=== PATIENT | male | born 2000 | race Native Hawaiian/Other Pacific Islander ===

== ENCOUNTER 2019-01-24 10:06 | Emergency (ER) | payer BC, OTHER ==
[~2019-01-24] VITALS: Ht 182 cm; Wt 127.0 kg
--- NOTE | 2019-01-24 10:30 | NUR ---
Patient belongings and clothing placed in belonging cabinet. Patient changed in to hospital gown at this time.
--- NOTE | 2019-01-24 10:42 | ED Psychosocial ---
General Chief Complaint: Suicidal Ideation Risk Stated Complaint: PSYCH EVAL History of Present Illness Date Seen by Provider: Jan 24, 2019 Time Seen by Provider: 10:35 Initial Comments 18-year-old male brought in by a coworker says he has a history of "bipolar depression" says he is very stressed out by: 1) he has a crush/is attracted to another male and these feelings are not returned 2) he has financial worries 3) other stressors not specified so that he is now having suicidal thoughts, says he has knives at home and would cut his own throat He apparently has made such suicidal gestures twice in the past and been hospitalized twice, once at [place], once in [place] he was on medication until about a year ago He admits to drinking alcohol but says the last was 3 weeks ago, admits to marijuana but denies any further substance abuse he states he has not taken anything or done anything to harm himself recently Denies any known active medical problems, other than he does have apparent flea bites on his ankles and arms Allergies and Home Medications Allergies Coded Allergies: Penicillins (Verified Allergy, Unknown, throat swelling, difficulty breathing, 01/24/19) Patient Home Medication List Home Medication List Reviewed: Yes Review of Systems Constitutional: no symptoms reported; No chills, No fever EENTM: no symptoms reported Respiratory: no symptoms reported Cardiovascular: no symptoms reported Gastrointestinal: no symptoms reported Genitourinary: no symptoms reported Musculoskeletal: no symptoms reported Psychiatric/Neurological: Depressed (having suicidal thoughts) Past Nsrdibf-Hvmszt-Cjlagl Hx Patient Social History Recent Foreign Travel: No Physical Exam Vital Signs - First Documented 01/24/19 10:43 Temp 36.4 Pulse 108 Resp 18 B/P (MAP) 128/82 Pulse Ox 99 Capillary Refill : Height, Weight, BMI Height: '" Weight: lbs. oz. 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, no motor/sensory deficits, alert, normal mood/affect, oriented x 3 Appearance/Memory: appropriate appearance Behavior/Eye Contact: cooperative, good eye contact Thoughts/Hallucinations: normal thought pattern Skin: other (flea bites especially on ankles) Progress/Results/Core Measures Results/Orders Lab Results Laboratory Tests Test 01/24/19 10:13 01/24/19 10:41 Range/Units Urine Color YELLOW Urine Clarity CLEAR Urine pH 6.0 5-9 Urine Specific [place] 1.025 H 1.016-1.022 Urine Protein NEGATIVE NEGATIVE Urine Glucose (UA) NEGATIVE NEGATIVE Urine Ketones NEGATIVE NEGATIVE Urine Nitrite NEGATIVE NEGATIVE Urine Bilirubin NEGATIVE NEGATIVE Urine Urobilinogen 0.2 NORMAL MG/DL Urine Leukocyte Esterase NEGATIVE NEGATIVE Urine RBC (Auto) NEGATIVE NEGATIVE Urine RBC NONE /HPF Urine WBC NONE /HPF Urine Squamous Epithelial Cells RARE /HPF Urine Crystals NONE /LPF Urine Bacteria NEGATIVE /HPF Urine Casts NONE /LPF Urine Mucus NONE /LPF Urine Culture Indicated NO Urine Opiates Screen NEGATIVE NEGATIVE Urine Oxycodone Screen NEGATIVE NEGATIVE Urine Methadone Screen NEGATIVE NEGATIVE Urine Propoxyphene Screen NEGATIVE NEGATIVE Urine Barbiturates Screen NEGATIVE NEGATIVE Ur Tricyclic Antidepressants Screen NEGATIVE NEGATIVE Urine Phencyclidine Screen NEGATIVE NEGATIVE Urine Amphetamines Screen NEGATIVE NEGATIVE Urine Methamphetamines Screen NEGATIVE NEGATIVE Urine Benzodiazepines Screen NEGATIVE NEGATIVE Urine Cocaine Screen NEGATIVE NEGATIVE Urine Cannabinoids Screen POSITIVE H NEGATIVE White Blood Count 7.0 4.3-11.0 10^3/uL Red Blood Count 5.48 4.35-5.85 10^6/uL Hemoglobin 14.1 13.3-17.7 G/DL Hematocrit 44 40-54 % Mean Corpuscular Volume 81 80-99 FL Mean Corpuscular Hemoglobin 26 25-34 PG Mean Corpuscular Hemoglobin Concent 32 32-36 G/DL Red Cell Distribution Width 13.0 10.0-14.5 % Platelet Count 367 130-400 10^3/uL Mean Platelet Volume 8.8 7.4-10.4 FL Neutrophils (%) (Auto) 46 42-75 % Lymphocytes (%) (Auto) 41 12-44 % Monocytes (%) (Auto) 9 0-12 % Eosinophils (%) (Auto) 4 0-10 % Basophils (%) (Auto) 0 0-10 % Neutrophils # (Auto) 3.2 1.8-7.8 X 10^3 Lymphocytes # (Auto) 2.9 1.0-4.0 X 10^3 Monocytes # (Auto) 0.6 0.0-1.0 X 10^3 Eosinophils # (Auto) 0.3 0.0-0.3 10^3/uL Basophils # (Auto) 0.0 0.0-0.1 10^3/uL Sodium Level 138 135-145 MMOL/L Potassium Level 4.0 3.6-5.0 MMOL/L Chloride Level 100 98-107 MMOL/L Carbon Dioxide Level 24 21-32 MMOL/L Anion Gap 14 5-14 MMOL/L Blood Urea Nitrogen 11 7-18 MG/DL Creatinine 0.94 0.60-1.30 MG/DL Estimat Glomerular Filtration Rate > 60 BUN/Creatinine Ratio 12 Glucose Level 133 H 70-105 MG/DL Calcium Level 9.4 8.5-10.1 MG/DL Corrected Calcium 9.0 8.5-10.1 MG/DL Total Bilirubin 0.2 0.1-1.0 MG/DL Aspartate Amino Transf (AST/SGOT) 36 H 5-34 U/L Alanine Aminotransferase (ALT/SGPT) 32 0-55 U/L Alkaline Phosphatase 94 40-136 U/L Total Protein 8.1 6.4-8.2 GM/DL Albumin 4.5 3.2-4.5 GM/DL Salicylates Level 0.5 L 5.0-20.0 MG/DL Acetaminophen Level < 10 L 10-30 UG/ML Serum Alcohol < 10 <10 MG/DL My Orders Orders - EDWIGE TIDWELL MD Urinalysis (01/24/19 10:15) Drug Screen Stat (Urine) (01/24/19 10:15) Alcohol (01/24/19 10:15) Cbc With Automated Diff (01/24/19 10:15) Comprehensive Metabolic Panel (01/24/19 10:15) Acetaminophen (01/24/19 10:15) Salicylate (01/24/19 10:54) Vital Signs/I&O 01/24/19 10:43 Temp 36.4 Pulse 108 Resp 18 B/P (MAP) 128/82 Pulse Ox 99 Progress Progress Note : Progress Note Patient is calm, in fact was sleeping through much of his ER stay Hb 14.1 and white count 7000 CMP essentially negative UA negative urine drug screen positive only for marijuana alcohol and Tylenol levels are 0 the patient is medically cleared ready for his mental health screening evaluation mental health screening eval is done pt not meeting any criteria to indicated hospitalization necessary arrangements being made for outpt follow up Departure Impression Primary Impression: Depression Qualified Codes: F32.9 - Major depressive disorder, single episode, unspecified Disposition: 01 HOME, SELF-CARE Condition: Stable Departure-Patient Inst. Decision time for Depature: 13:55 Referrals: NO,LOCAL PHYSICIAN (PCP/Family) Primary Care Physician Patient Instructions: Depression, Adult (DC) Add. Discharge Instructions: Please follow-up according to the arrangements by the mental health screener Don't hesitate to return if worsening EDWIGE TIDWELL MD Jan 24, 2019 10:42
[2019-01-24 10:44] LABS: BACTERIA,URINE NEGATIVE /HPF; BILIRUBIN,URINE NEGATIVE (NEGATIVE); CLARITY,URINE CLEAR; COLOR,URINE YELLOW; GLUCOSE, URINE (UA) NEGATIVE (NEGATIVE); KETONES,URINE NEGATIVE (NEGATIVE); LEUKOCYTE ESTERASE ,URINE NEGATIVE (NEGATIVE); NITRITE,URINE NEGATIVE (NEGATIVE); PROTEIN,URINE NEGATIVE (NEGATIVE); SQUAMOUS EPITHELIAL CELL,UR RARE /HPF
[2019-01-24 10:49] LABS: AMPHETAMINE SCREEN, URINE NEGATIVE (NEGATIVE); BARBITURATE SCREEN URINE NEGATIVE (NEGATIVE); BENZODIAZEPINES SCREEN URINE NEGATIVE (NEGATIVE); CANNABINOID SCREEN, URINE POSITIVE (NEGATIVE); COCAINE SCREEN URINE NEGATIVE (NEGATIVE); METHADONE STAT NEGATIVE (NEGATIVE); METHAMPHETAMINE SCREEN URINE S NEGATIVE (NEGATIVE); OPIATE SCREEN URINE NEGATIVE (NEGATIVE); OXYCODONE STAT NEGATIVE (NEGATIVE); PROPOXYPHENE STAT NEGATIVE (NEGATIVE); TRICYCLIC ANTIDEPRESSANTS SCRE NEGATIVE (NEGATIVE)
[2019-01-24 10:56] LABS: HEMATOCRIT 44 % (40-54); HEMOGLOBIN 14.1 G/DL (13.3-17.7); MEAN CORPUSCULAR HEMOGLOBIN 26 PG (25-34); MEAN CORPUSCULAR HGB CONC 32 G/DL (32-36); MEAN CORPUSCULAR VOLUME 81 FL (80-99); PLATELET COUNT 367 10^3/uL (130-400)
[2019-01-24 10:57] LABS: BASOPHILS % (AUTO) 0 % (0-10); EOSINOPHILS # (AUTO) 0.3 10^3/uL (0.0-0.3); EOSINOPHILS % (AUTO) 4 % (0-10); LYMPHOCYTES # (AUTO) 2.9 X 10^3 (1.0-4.0); LYMPHOCYTES % (AUTO) 41 % (12-44); MEAN PLATELET VOLUME 8.8 FL (7.4-10.4); MONOCYTES # (AUTO) 0.6 X 10^3 (0.0-1.0); MONOCYTES % (AUTO) 9 % (0-12); NEUTROPHILS # (AUTO) 3.2 X 10^3 (1.8-7.8); NEUTROPHILS % (AUTO) 46 % (42-75)
[2019-01-24 11:25] LABS: ALANINE AMINOTRANSFERASE 32 U/L (0-55); ALKALINE PHOSPHATASE 94 U/L (40-136); BILIRUBIN,TOTAL 0.2 MG/DL (0.1-1.0); BUN/CREATININE RATIO 12; CALCIUM 9.4 MG/DL (8.5-10.1); CARBON DIOXIDE 24 MMOL/L (21-32); CHLORIDE 100 MMOL/L (98-107); CREATININE SERUM 0.94 MG/DL (0.60-1.30); GFR ESTIMATED > 60; GLUCOSE 133 MG/DL (70-105); SODIUM 138 MMOL/L (135-145)
[2019-01-24 11:26] LABS: ACETAMINOPHEN < 10 UG/ML (10-30); ALBUMIN 4.5 GM/DL (3.2-4.5); TOTAL PROTEIN 8.1 GM/DL (6.4-8.2)
--- NOTE | 2019-01-24 11:39 | NUR ---
Called [facility] at this time to request screening. Spoke with Bijal in the office who took patient information and states a screener will be calling me back soon.
--- NOTE | 2019-01-24 11:45 | NUR ---
Received call from Paulo at [facility]. States it will be a while until someone will be here to screen him but will call and let us know.
--- NOTE | 2019-01-24 14:00 | NUR ---
felipe Bateser from [facility], states he is making a safety plan and the patient will be ok for discharge.
== END 2019-01-24 14:38 | disposition home or self-care (01) ==
LOC: ER FS 10:08
DX: F32.9 Major depressive disorder, single episode, unspecified (principal); Z88.0 Allergy status to penicillin
CPT/HCPCS: 36415; 80053; 80306; 80320; 80329; 81000; 85025

== ENCOUNTER → 2020-01-09 | Emergency (ER) | payer BC ==
[~2020-01-09] VITALS: Ht 187.9 cm; Wt 113.0 kg
[~2020-01-09] MED LIST: ACETAMINOPHEN 325 MG TABLET PO STA; LACTATED RINGERS 1,000 ML IV ONE; LACTATED RINGERS 1,000 ML IV STA; NS IV 1000 ML 1,000 ML IV SCH
--- NOTE | 2020-01-09 02:37 | ED GI ---
General Stated Complaint: FEVER,DIARRHEA Source of Information: Patient Exam Limitations: No Limitations History of Present Illness Date Seen by Provider: Jan 09, 2020 Time Seen by Provider: 02:33 Initial Comments 19-year-old male presents with fever, diarrhea. Patient reports had fever for a couple days. That he's had diarrhea on and off this woke him up every 20 minutes since midnight. Denies any cough. Denies abdominal pain patient heart rate is slightly elevated. He hasn't taken any Tylenol ibuprofen for the fever. Patient has some generalized body aches and malaise. Allergies and Home Medications Allergies Coded Allergies: Penicillins (Verified Allergy, Unknown, throat swelling, difficulty breathing, 01/24/19) Patient Home Medication List Home Medication List Reviewed: Yes Review of Systems Review of Systems Constitutional: fever, malaise Respiratory: Denies Cough, Denies Shortness of Air Cardiovascular: Denies Chest Pain, Denies Irregular Heart Rate Gastrointestinal: Denies Abdominal Pain; Diarrhea; Denies Vomiting Genitourinary: No Symptoms Reported Musculoskeletal: see HPI Skin: no symptoms reported Psychiatric/Neurological: No Symptoms Reported Endocrine: No Symptoms Reported Past Lvjoyhf-Oiqjif-Jaqemp Hx Past Med/Social Hx: Reviewed Nursing Past Med/Soc Hx Patient Social History Drug of Choice: marijuana- daily use Type Used: Electronic/Vapor 2nd Hand Smoke Exposure: Yes Recent Foreign Travel: No Contact w/Someone Who Travel: No Recent Hopitalizations: No Seasonal Allergies Seasonal Allergies: No Past Medical History Surgeries: No Respiratory: No Cardiac: No Neurological: No Genitourinary: No Gastrointestinal: No Musculoskeletal: No Endocrine: No HEENT: No Cancer: No Psychosocial: Yes ADD/ADHD, Sleep Difficulties, Depression Integumentary: No Blood Disorders: No Adverse Reaction/Blood Tranf: No Physical Exam Vital Signs Vital Signs - First Documented 01/09/20 02:30 Temp 39.1 Pulse 153 Resp 32 B/P (MAP) 108/66 Pulse Ox 96 O2 Delivery Room Air Capillary Refill : Height/Weight/BMI Height: '" Weight: lbs. oz. 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, no motor/sensory deficits, normal mood/affect, oriented x 3 Skin: normal color, warm/dry Focused Exam Lactate Level 01/09/20 02:30: Lactic Acid Level 1.34 Lactic Acid Level Laboratory Tests Test 01/09/20 02:30 Lactic Acid Level 1.34 MMOL/L (0.50-2.00) Progress/Results/Core Measures Results/Orders Lab Results Laboratory Tests Test 01/09/20 02:30 01/09/20 02:38 Range/Units White Blood Count 14.6 H 4.3-11.0 10^3/uL Red Blood Count 5.99 H 4.35-5.85 10^6/uL Hemoglobin 15.5 13.3-17.7 G/DL Hematocrit 47 40-54 % Mean Corpuscular Volume 78 L 80-99 FL Mean Corpuscular Hemoglobin 26 25-34 PG Mean Corpuscular Hemoglobin Concent 33 32-36 G/DL Red Cell Distribution Width 13.1 10.0-14.5 % Platelet Count 262 130-400 10^3/uL Mean Platelet Volume 8.8 7.4-10.4 FL Immature Granulocyte % (Auto) 1 % Neutrophils (%) (Auto) 76 H 42-75 % Lymphocytes (%) (Auto) 16 12-44 % Monocytes (%) (Auto) 8 0-12 % Eosinophils (%) (Auto) 0 0-10 % Basophils (%) (Auto) 0 0-10 % Neutrophils # (Auto) 11.1 H 1.8-7.8 X 10^3 Lymphocytes # (Auto) 2.3 1.0-4.0 X 10^3 Monocytes # (Auto) 1.1 H 0.0-1.0 X 10^3 Eosinophils # (Auto) 0.0 0.0-0.3 10^3/uL Basophils # (Auto) 0.1 0.0-0.1 10^3/uL Immature Granulocyte # (Auto) 0.1 0.0-0.1 10^3/uL Neutrophils % (Manual) 52 % Lymphocytes % (Manual) 20 % Monocytes % (Manual) 6 % Eosinophils % (Manual) 0 % Basophils % (Manual) 1 % Band Neutrophils 21 % Microcytosis 2+ Sodium Level 136 135-145 MMOL/L Potassium Level 4.0 3.6-5.0 MMOL/L Chloride Level 97 L 98-107 MMOL/L Carbon Dioxide Level 23 21-32 MMOL/L Anion Gap 16 H 5-14 MMOL/L Blood Urea Nitrogen 14 7-18 MG/DL Creatinine 1.29 0.60-1.30 MG/DL Estimat Glomerular Filtration Rate > 60 BUN/Creatinine Ratio 11 Glucose Level 108 H 70-105 MG/DL Lactic Acid Level 1.34 0.50-2.00 MMOL/L Calcium Level 9.4 8.5-10.1 MG/DL Corrected Calcium 8.5-10.1 MG/DL Total Bilirubin 0.9 0.1-1.0 MG/DL Aspartate Amino Transf (AST/SGOT) 35 H 5-34 U/L Alanine Aminotransferase (ALT/SGPT) 25 0-55 U/L Alkaline Phosphatase 72 40-136 U/L C-Reactive Protein 11.90 H <0.50 MG/DL Total Protein 8.6 H 6.4-8.2 GM/DL Albumin 4.6 H 3.2-4.5 GM/DL Urine Color DARK YELLOW Urine Clarity CLEAR Urine pH 6.0 5-9 Urine Specific [place] 1.020 1.016-1.022 Urine Protein 1+ H NEGATIVE Urine Glucose (UA) NEGATIVE NEGATIVE Urine Ketones NEGATIVE NEGATIVE Urine Nitrite NEGATIVE NEGATIVE Urine Bilirubin 1+ H NEGATIVE Urine Urobilinogen 0.2 < = 1.0 MG/DL Urine Leukocyte Esterase NEGATIVE NEGATIVE Urine RBC (Auto) 2+ H NEGATIVE Urine RBC 10-25 H /HPF Urine WBC RARE /HPF Urine Squamous Epithelial Cells 0-2 /HPF Urine Crystals NONE /LPF Urine Bacteria NEGATIVE /HPF Urine Casts NONE /LPF Urine Mucus SMALL H /LPF Urine Culture Indicated NO My Orders Orders - NEGRETE,ROMAN L DO Lactated Ringers (Lr 1000 Ml Iv Solution (01/09/20 02:33) Cbc With Automated Diff (01/09/20 02:39) Comprehensive Metabolic Panel (01/09/20 02:39) Lactic Acid Analyzer (01/09/20 02:39) Procalcitonin (Pct) (01/09/20 02:39) Ua Culture If Indicated (01/09/20 02:39) Crp Fs (01/09/20 02:39) Acute Abd Series (01/09/20 02:39) Acetaminophen Tablet/Caplet (Tylenol T (01/09/20 02:42) Manual Differential (01/09/20 02:30) Lactated Ringers (Lr 1000 Ml Iv Solution (01/09/20 03:57) Ekg Tracing (01/09/20 03:57) Creatine Kinase (01/09/20 03:57) Lactated Ringers (Lr 1000 Ml Iv Solution (01/09/20 03:56) Ns Iv 1000 Ml (Sodium Chloride 0.9%) (01/09/20 05:15) Medications Given in ED Current Medications Medications Dose Ordered Sig/Navin Route Start Time Stop Time Status Last Admin Dose Admin Lactated Ringer's 1,000 ml @ ud STK-MED ONCE IV 01/09/20 02:33 01/09/20 02:38 DC 01/09/20 03:07 1,000 MLS/HR Lactated Ringer's 1,000 ml @ ud STK-MED ONCE IV 01/09/20 03:56 01/09/20 04:02 DC 01/09/20 04:18 1,000 MLS/HR Vital Signs/I&O 01/09/20 01/09/20 01/09/20 02:30 02:30 03:59 Temp 39.1 39.1 38.7 Pulse 153 153 Resp 32 32 B/P (MAP) 108/66 108/66 (80) Pulse Ox 96 96 O2 Delivery Room Air Progress Progress Note : Time: 05:56 Progress Note pt with multiple episodes of diarrhea while here in ER. pt states feeling fine outside of freguent diarrhea. pt initial hr in 150's, improved 1o 100-105. Initial ECG Impression Date: Jan 09, 2020 Initial ECG Impression Time: 04:07 Initial ECG Rate: 125 Initial ECG Rhythm: Normal Sinus Initial ECG Intervals: Normal Initial ECG Comparisson: No Previous ECG Available Comment sinus tachy, early repol Departure Impression Primary Impression: Viral gastroenteritis Disposition: 01 HOME, SELF-CARE Condition: Stable Departure-Patient Inst. Referrals: NO,LOCAL PHYSICIAN (PCP/Family) Primary Care Physician Patient Instructions: Viral Gastroenteritis, Adult (DC), Dehydration, Adult (DC) Add. Discharge Instructions: drink plenty of fluids rest Work/School Note: School/Childcare Release, Date Seen in the Emergency Department: Jan 09, 2020 Return to School: Jan 13, 2020 Work Release Form Date Seen in the Emergency Department: Jan 09, 2020 Return to Work: Jan 12, 2020 ROMAN NEGRETE DO Jan 09, 2020 02:37
[2020-01-09 03:11] LABS: WHITE BLOOD COUNT 14.6 10^3/uL (4.3-11.0)
[2020-01-09 03:12] LABS: BASOPHILS % (AUTO) 0 % (0-10); EOSINOPHILS % (AUTO) 0 % (0-10); HEMATOCRIT 47 % (40-54); HEMOGLOBIN 15.5 G/DL (13.3-17.7); LYMPHOCYTES % (AUTO) 16 % (12-44); MEAN CORPUSCULAR HEMOGLOBIN 26 PG (25-34); MEAN CORPUSCULAR HGB CONC 33 G/DL (32-36); MEAN CORPUSCULAR VOLUME 78 FL (80-99); MEAN PLATELET VOLUME 8.8 FL (7.4-10.4); MONOCYTES % (AUTO) 8 % (0-12); PLATELET COUNT 262 10^3/uL (130-400)
[2020-01-09 03:13] LABS: BASOPHILS # (AUTO) 0.1 10^3/uL (0.0-0.1); LYMPHOCYTES # (AUTO) 2.3 X 10^3 (1.0-4.0); MONOCYTES # (AUTO) 1.1 X 10^3 (0.0-1.0); NEUTROPHILS # (AUTO) 11.1 X 10^3 (1.8-7.8)
[2020-01-09 03:14] LABS: NEUTROPHILS % (AUTO) 76 % (42-75)
[2020-01-09 03:20] LABS: BACTERIA,URINE NEGATIVE /HPF; BILIRUBIN,URINE 1+ (NEGATIVE); CLARITY,URINE CLEAR; COLOR,URINE DARK YELLOW; GLUCOSE, URINE (UA) NEGATIVE (NEGATIVE); KETONES,URINE NEGATIVE (NEGATIVE); LEUKOCYTE ESTERASE ,URINE NEGATIVE (NEGATIVE); NITRITE,URINE NEGATIVE (NEGATIVE); PROTEIN,URINE 1+ (NEGATIVE); WBC,URINE RARE /HPF
[2020-01-09 03:21] LABS: SQUAMOUS EPITHELIAL CELL,UR 0-2 /HPF
[2020-01-09 03:26] LABS: ALKALINE PHOSPHATASE 72 U/L (40-136); BILIRUBIN,TOTAL 0.9 MG/DL (0.1-1.0); BUN/CREATININE RATIO 11; CALCIUM 9.4 MG/DL (8.5-10.1); CARBON DIOXIDE 23 MMOL/L (21-32); CHLORIDE 97 MMOL/L (98-107); CREATININE SERUM 1.29 MG/DL (0.60-1.30); GFR ESTIMATED > 60; GLUCOSE 108 MG/DL (70-105); SODIUM 136 MMOL/L (135-145)
--- NOTE | 2020-01-09 03:26 | NUR ---
Pt reports he has a history of sleep apnea. Noted decrease in O2 sats, checked on patient and he was snoring loudly. Once he was awake O2 sats increased to 97 % RA.
[2020-01-09 03:27] LABS: ALANINE AMINOTRANSFERASE 25 U/L (0-55); ALBUMIN 4.6 GM/DL (3.2-4.5); TOTAL PROTEIN 8.6 GM/DL (6.4-8.2)
[2020-01-09 03:28] LABS: BAND NEUTROPHILS 21 %; BASOPHILS % (MANUAL) 1 %; EOSINOPHILS % (MANUAL) 0 %; LYMPHOCYTES % (MANUAL) 20 %; MICROCYTOSIS 2+; MONOCYTES % (MANUAL) 6 %; NEUTROPHILS % (MANUAL) 52 %
--- NOTE | 2020-01-09 04:32 | NUR ---
Pt ambulatory to restroom, reports diarrhea.
--- NOTE | 2020-01-09 05:09 | NUR ---
Pt ambulatory to restroom for diarrhea.
[2020-01-09 06:00] VITALS: BP 108/66
--- NOTE | 2020-01-09 07:08 | Diagnostic Imaging Report ---
INDICATION: Diarrhea and fever. No prior examination available for comparison. FINDINGS: The heart size is normal. Lungs are clear. There is no pleural effusion or pneumothorax. Bowel gas pattern is nonspecific. There is no free air. There are no abnormal abdominal calcifications. IMPRESSION: No acute cardiopulmonary abnormality. Nonspecific bowel gas pattern. Dictated by: Dictated on workstation # [id number]
== END | disposition home or self-care (01) ==
LOC: EDUNIT# 02:26 → ER FS 02:28
DX: A08.4 Viral intestinal infection, unspecified (principal); Z88.0 Allergy status to penicillin; Z77.22 Contact with and (suspected) exposure to environmental tobacco smoke (acute) (chronic)
CPT/HCPCS: 36415; 74022; 80053; 81000; 82550; 83605; 84145; 85007; 85027; 86141; 93005